=== PATIENT | male | born 1990 | race Caucasian/White ===

== ENCOUNTER 2018-10-01 22:48 | Emergency (ER) | payer OTHER, MEDICAID ==
[2018-10-01] MEDS: OXYMETAZOLINE NASAL SPRAY (AFRIN) (23:15)
== END 2018-10-01 23:34 | disposition home or self-care (01) ==
LOC: M ED 22:48
DX: H92.01 Otalgia, right ear (principal); J32.9 Chronic sinusitis, unspecified; F17.200 Nicotine dependence, unspecified, uncomplicated; I10 Essential (primary) hypertension; K21.9 Gastro-esophageal reflux disease without esophagitis; M54.9 Dorsalgia, unspecified; F32.9 Major depressive disorder, single episode, unspecified; F43.10 Post-traumatic stress disorder, unspecified; Z79.899 Other long term (current) drug therapy
CPT/HCPCS: 99282

== ENCOUNTER 2018-10-20 00:23 | Emergency (ER) | payer OTHER, SELFPAY ==
[~2018-10-20] VITALS: Ht 175.3 cm; Wt 94.1 kg
[~2018-10-20 00:23] MED LIST: ATEN50TA2 PO; AUGM875T28 PO; CYCL10TA PO; IBUP80TA PO; METH10TA PO; MOTR200T44 PO; NICO14DI3 TD; PANT40TA3 PO; PENI50TA PO; PERC5TAB12 PO; ROSU10TA5 PO; TYLE167L PO; TYLE325T5 PO
[2018-10-20 00:31] VITALS: BP 170/92
[2018-10-20] MEDS ORDERED: CLEO300C2 PO (01:45)
[2018-10-20] MEDS ORDERED: NORCO 5/325MG TABLET (BULK FOR ED) PO ONE (01:45)
[2018-10-20] MEDS ORDERED: CLINDAMYCIN 150 MG CAP PO ONE (01:45)
== END 2018-10-20 02:32 | disposition home or self-care (01) ==
LOC: M ED 00:23
DX: K08.89 Other specified disorders of teeth and supporting structures (principal); F17.210 Nicotine dependence, cigarettes, uncomplicated; Z79.899 Other long term (current) drug therapy

== ENCOUNTER 2018-12-12 00:10 | Emergency (ER) | payer OTHER ==
[~2018-12-12] VITALS: Ht 170.2 cm; Wt 87.7 kg
[2018-12-12 00:10] VITALS: BP 141/78
[~2018-12-12 00:10] MED LIST changes: +CLEO300C2 PO
[2018-12-12] MEDS ORDERED: ZITHTAB PO (02:14)
== END 2018-12-12 02:27 | disposition home or self-care (01) ==
LOC: M ED 00:10
DX: J01.90 Acute sinusitis, unspecified (principal); E03.9 Hypothyroidism, unspecified; F43.10 Post-traumatic stress disorder, unspecified; R51 Headache; F17.200 Nicotine dependence, unspecified, uncomplicated; Z79.899 Other long term (current) drug therapy

== ENCOUNTER 2019-03-26 16:47 | Emergency (ER) | payer OTHER ==
[~2019-03-26] VITALS: Ht 170.2 cm; Wt 88.8 kg
[~2019-03-26 16:47] MED LIST changes: +PENI500T PO; -PENI50TA PO; +ZITHTAB PO
[2019-03-26 16:48] VITALS: BP_SYST 77
== END 2019-03-26 18:41 | disposition left against medical advice (07) ==
LOC: M ED 16:47
DX: H57.89 Other specified disorders of eye and adnexa (principal); Z88.5 Allergy status to narcotic agent; Z79.899 Other long term (current) drug therapy

== ENCOUNTER 2019-05-20 02:08 | Emergency (ER) | payer OTHER ==
[~2019-05-20] VITALS: Ht 177.8 cm; Wt 90.9 kg
[2019-05-20] MEDS ORDERED: BUPIVACAINE LIPOSOME/PF 1.3% 20ML VIAL (13.3MG/ML)(EXPAREL)(C9290 PER1MG) INFIL ONE (02:30)
[2019-05-20 03:19] VITALS: BP 133/93
== END 2019-05-20 03:20 | disposition home or self-care (01) ==
LOC: M ED 02:08
DX: G89.29 Other chronic pain (principal); K08.89 Other specified disorders of teeth and supporting structures; K21.9 Gastro-esophageal reflux disease without esophagitis; F43.10 Post-traumatic stress disorder, unspecified; Z88.5 Allergy status to narcotic agent
CPT/HCPCS: 64400; 99283; C9290

== ENCOUNTER 2020-10-04 06:30 | Emergency (ER) | payer OTHER, SELFPAY ==
[~2020-10-04] VITALS: Ht 175.3 cm; Wt 85.0 kg
[~2020-10-04 06:30] MED LIST changes: +CYCL-707 PO; -CYCL10TA PO; +PANT40TA29 PO; -PANT40TA3 PO; -ROSU10TA5 PO; +ROSU10TA6 PO
[2020-10-04] MEDS ORDERED: SERO1TAB3 PO (06:49)
[2020-10-04] MEDS ORDERED: CYCL-707 PO (06:49)
[2020-10-04] MEDS ORDERED: GABA-282 PO (06:49)
[2020-10-04] MEDS ORDERED: ONDANSETRON 4MG/2ML VIAL IV ONE (07:15)
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
[2020-10-04] MEDS ORDERED: NS 1,000 ML IV ONE (07:45)
[2020-10-04 08:08] LABS: BASO % 0.3 % (0.0-1.0); EOS % 0.2 % (0.0-3.0); HEMATOCRIT 45.2 % (42.0-52.0); LYMPH % 7.1 % (24.0-44.0); MEAN CORPUSCULAR HEMOGLOBIN 28.4 pg (27.0-33.0); MEAN CORPUSCULAR HGB CONC 33.2 g/dl (32.0-36.5); MEAN CORPUSCULAR VOLUME 85.4 fl (80.0-96.0); MONO # 0.7 10^3/uL (0.0-0.8); NEUTROPHILS # 11.9 10^3/uL (1.5-8.5); NEUTROPHILS % 86.8 % (36.0-66.0); PLATELET COUNT, AUTOMATED 275 10^3/uL (150-450); RED BLOOD COUNT 5.29 10^6/uL (4.30-6.10); WHITE BLOOD COUNT 13.7 10^3/uL (4.0-10.0)
[2020-10-04 08:19] LABS: INR 1.02; PROTHROMBIN TIME 13.6 SECONDS (12.5-14.3)
[2020-10-04 08:20] LABS: PARTIAL THROMBOPLASTIN TIME 23.5 SECONDS (24.2-38.5)
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
[2020-10-04 08:30] LABS: BILIRUBIN,DIRECT 0.1 MG/DL (0.0-0.2); BILIRUBIN,TOTAL 0.7 MG/DL (0.2-1.0); TOTAL PROTEIN 7.2 GM/DL (6.4-8.2)
[2020-10-04] MEDS ORDERED: ACETAMINOPHEN 500 MG TAB PO ONE (09:30)
[2020-10-04] MEDS ORDERED: NEOSPORIN OINT 0.9 GM PKT TOP ONE (09:45)
[2020-10-04 09:48] VITALS: BP 142/72
== END 2020-10-04 09:50 | disposition home or self-care (01) ==
LOC: M ED 06:30
DX: S06.0X0A Concussion without loss of consciousness, initial encounter (principal); Y35.893A Legal intervention involving other specified means, suspect injured, initial encounter; Y92.9 Unspecified place or not applicable; Y93.9 Activity, unspecified; Y99.9 Unspecified external cause status; K21.9 Gastro-esophageal reflux disease without esophagitis; F43.10 Post-traumatic stress disorder, unspecified; Z88.6 Allergy status to analgesic agent
CPT/HCPCS: 70450; 72125; 72131; 73060; 73090; 73552; 73590; 80047; 80076; 85025; 85610; 85730; 86850; 86900; 86901; 93041; 94760; 96361; 96374; 99285; J2405

== ENCOUNTER 2021-02-27 03:37 | Emergency (ER) | payer SELFPAY ==
[~2021-02-27] VITALS: Ht 170.2 cm; Wt 78.0 kg
[~2021-02-27 03:37] MED LIST changes: +GABA-282 PO; +SERO1TAB3 PO
[2021-02-27] MEDS ORDERED: NS 1,000 ML IV ONE ×2 (03:55→04:45)
[2021-02-27 04:12] LABS: HEMATOCRIT 44.3 % (42.0-52.0); HEMOGLOBIN 14.4 g/dl (13.5-17.5); MEAN CORPUSCULAR HEMOGLOBIN 29.3 pg (27.0-33.0); MEAN CORPUSCULAR HGB CONC 32.5 g/dl (32.0-36.5); PLATELET COUNT, AUTOMATED 265 10^3/uL (150-450); RED BLOOD COUNT 4.92 10^6/uL (4.30-6.10); WHITE BLOOD COUNT 6.2 10^3/uL (4.0-10.0)
[2021-02-27 04:32] LABS: AMPHETAMINES LEVEL URINE POSITIVE (NEGATIVE); BARBITURATES URINE NEGATIVE (NEGATIVE); BENZODIAZEPINES URINE NEGATIVE (NEGATIVE); CANNABINOIDS URINE POSITIVE (NEGATIVE); COCAINE METABOLITE URINE NEGATIVE (NEGATIVE); METHADONE URINE NEGATIVE (NEGATIVE); OPIATES URINE NEGATIVE (NEGATIVE); PHENCYCLIDINE URINE NEGATIVE (NEGATIVE)
[2021-02-27 05:00] LABS: ACETAMINOPHEN LEVEL < 2.0 UG/ML (10.0-30.0); ALBUMIN 3.8 GM/DL (3.2-5.2); ALT/SGPT 25 U/L (12-78); BILIRUBIN,DIRECT < 0.1 MG/DL (0.0-0.2); BILIRUBIN,TOTAL 0.3 MG/DL (0.2-1.0); BLOOD UREA NITROGEN 9 MG/DL (7-18); CALCIUM LEVEL 8.6 MG/DL (8.5-10.1); CARBON DIOXIDE LEVEL 27 MEQ/L (21-32); CHLORIDE LEVEL 107 MEQ/L (98-107); CREATININE FOR GFR 1.14 MG/DL (0.70-1.30); ETHYL ALCOHOL (ETHANOL) < 0.003 % (0.000-0.010); GLOMERULAR FILTRATION RATE > 60.0 (>60); GLUCOSE, FASTING 93 MG/DL (70-100); POTASSIUM SERUM 3.4 MEQ/L (3.5-5.1); SALICYLATE LEVEL < 1.7 MG/DL (5.0-30.0); SODIUM LEVEL 143 MEQ/L (136-145); THYROID STIMULATING HORMONE 0.611 uIU/ML (0.358-3.740); TOTAL PROTEIN 7.1 GM/DL (6.4-8.2)
[2021-02-27] MEDS ORDERED: AMMONIA AROMATIC INHALANT STA (11:42)
[2021-02-27 13:00] VITALS: BP 146/75
== END 2021-02-27 13:31 | disposition home or self-care (01) ==
LOC: M ED 03:37
DX: F19.120 Other psychoactive substance abuse with intoxication, uncomplicated (principal); Z79.899 Other long term (current) drug therapy

== ENCOUNTER 2022-05-30 06:10 | Emergency (ER) | payer OTHER, SELFPAY ==
[~2022-05-30] VITALS: Ht 177.8 cm; Wt 78.2 kg
[2022-05-30] MEDS ORDERED: BACITRACIN OINTMENT 30GM TUBE TOP ONE (08:45)
[2022-05-30] MEDS ORDERED: BOOSTRIX/ADACEL VACCINE (DIPHTH/PERTUSS/ACELL/TETANUS) 0.5ML SYR IM.IMMUN ONE (08:45)
[2022-05-30] MEDS ORDERED: ONDANSETRON 4MG ORAL DISINTEGRATING TAB PO ONE (09:00)
[2022-05-30] MEDS ORDERED: oxyCODONE 5MG TAB PO ONE (09:00)
[2022-05-30] MEDS ORDERED: BACI500O8 TOP (10:59)
[2022-05-30] MEDS ORDERED: IBUP-1022 PO (10:59)
[2022-05-30 11:05] VITALS: BP 155/92
== END 2022-05-30 11:21 | disposition home or self-care (01) ==
LOC: M ED 06:10
DX: T23.262A Burn of second degree of back of left hand, initial encounter (principal); T23.261A Burn of second degree of back of right hand, initial encounter; X04.XXXA Exposure to ignition of highly flammable material, initial encounter; K21.9 Gastro-esophageal reflux disease without esophagitis; F43.10 Post-traumatic stress disorder, unspecified; F17.200 Nicotine dependence, unspecified, uncomplicated; M54.50 Low back pain, unspecified; Z88.6 Allergy status to analgesic agent; Y92.9 Unspecified place or not applicable; Y93.9 Activity, unspecified; Y99.9 Unspecified external cause status; T31.0 Burns involving less than 10% of body surface

== ENCOUNTER → 2023-04-26 | Outpatient (CLI) | payer OTHER ==
[~2023-04-26] MED LIST changes: +BACI500O8 TOP; +IBUP-1022 PO
[2023-04-26 15:40] LABS: BASO % 0.6 % (0.0-1.0); EOS # 0.1 10^3/uL (0.0-0.5); EOS % 1.8 % (0.0-3.0); HEMATOCRIT 44.2 % (42.0-52.0); HEMOGLOBIN 15.2 g/dl (13.5-17.5); LYMPH # 2.1 10^3/uL (1.5-5.0); LYMPH % 29.9 % (24.0-44.0); MEAN CORPUSCULAR HEMOGLOBIN 29.7 pg (27.0-33.0); MEAN CORPUSCULAR HGB CONC 34.4 g/dl (32.0-36.5); MEAN CORPUSCULAR VOLUME 86.5 fl (80.0-96.0); MONO # 0.5 10^3/uL (0.0-0.8); MONO % 6.3 % (2.0-8.0); NEUTROPHILS # 4.4 10^3/uL (1.5-8.5); NEUTROPHILS % 61.1 % (36.0-66.0); PLATELET COUNT, AUTOMATED 245 10^3/uL (150-450); RED BLOOD COUNT 5.11 10^6/uL (4.30-6.10); WHITE BLOOD COUNT 7.2 10^3/uL (4.0-10.0)
[2023-04-26 16:00] LABS: HEMOGLOBIN A1c 5.1 % (4.0-6.0)
[2023-04-26 16:19] LABS: ALBUMIN 4.1 G/DL (3.2-5.2); ALKALINE PHOSPHATASE 93 U/L (46-116); ALT/SGPT 33 U/L (7.0-40); AST/SGOT 23 U/L (<34); BILIRUBIN,DIRECT 0.3 MG/DL (<0.4); BILIRUBIN,TOTAL 1.1 MG/DL (0.3-1.2); BLOOD UREA NITROGEN 12 MG/DL (9-23); CALCIUM LEVEL 8.6 MG/DL (8.5-10.1); CARBON DIOXIDE LEVEL 24 MMOL/L (20-31); CHLORIDE LEVEL 109 MMOL/L (98-107); CHOLESTEROL LEVEL 228 MG/DL (<200); CHOLESTEROL RISK RATIO 6.11 (<5); CREATININE FOR GFR 0.79 MG/DL (0.70-1.30); GLOMERULAR FILTRATION RATE > 60.0 (>60); GLUCOSE, FASTING 91 MG/DL (60-100); HDL CHOLESTEROL 37.3 MG/DL (>40); LDL CHOLESTEROL 164.9 MG/DL (<100); NON-HDL-C 190.7 MG/DL; POTASSIUM SERUM 4.3 MMOL/L (3.5-5.1); SODIUM LEVEL 143 MMOL/L (136-145); TOTAL PROTEIN 6.9 G/DL (5.7-8.2); TRIGLYCERIDES LEVEL 129 MG/DL (<150)
[2023-04-26 16:21] LABS: TOTAL 25(OH) VITAMIN D 33.1 NG/ML (20.0-100.0)
[2023-04-26 16:22] LABS: THYROID STIMULATING HORMONE 2.453 uIU/ML (0.55-4.78)
[2023-04-26 16:46] LABS: HIV 1&2 SCREEN NEGATIVE (NEGATIVE)
[2023-04-26 16:58] LABS: HEPATITIS C VIRUS ABY INDEX > 11.0 INDEX (<0.8)
== END ==
LOC: M LAB 14:57
PROVIDERS: ATTEND Registered Nurse Psychiatric/Mental Health
DX: Z79.899 Other long term (current) drug therapy (principal)

== ENCOUNTER 2023-05-21 13:08 | Emergency (ER) | payer OTHER ==
[~2023-05-21] VITALS: Ht 170.2 cm; Wt 93.2 kg
[2023-05-21] MEDS ORDERED: DOXY-443 PO (14:13)
[2023-05-21] MEDS ORDERED: DOXYCYCLINE HYCLATE 100MG TABLET PO ONE (14:15)
[2023-05-21 15:03] VITALS: BP 143/77; TEMP 97.8; O2SAT 100
== END 2023-05-21 15:04 | disposition home or self-care (01) ==
LOC: M ED 13:08
DX: L66.4 Folliculitis ulerythematosa reticulata (principal); L03.90 Cellulitis, unspecified; F43.10 Post-traumatic stress disorder, unspecified; K21.9 Gastro-esophageal reflux disease without esophagitis; F17.200 Nicotine dependence, unspecified, uncomplicated; Z88.5 Allergy status to narcotic agent; Z79.899 Other long term (current) drug therapy

== ENCOUNTER 2024-09-27 13:56 | Emergency (ER) | payer OTHER ==
[~2024-09-27] VITALS: Ht 170.2 cm; Wt 104.5 kg
[~2024-09-27 13:56] MED LIST changes: +DOXY-441 PO; +GABA-1172 PO; -GABA-282 PO; -ROSU10TA6 PO; +ROSU10TA61 PO
[2024-09-27] MEDS ORDERED: ACET-683 PO (14:02)
[2024-09-27] MEDS ORDERED: IBUP200T46 PO (14:02)
[2024-09-27] MEDS: KETOROLAC 30 MG/ML 1ML VIAL IM ONE (15:03)
[2024-09-27] MEDS: CYCLOBENZAPRINE 5MG TABLET PO ONE (15:03)
[2024-09-27] MEDS: LIDOCAINE 5% (LIDODERM) PATCH TD ONE (15:04)
[2024-09-27] MEDS: NORCO, ANEXSIA 5/325MG TABLET (HYDROcodone/ACETAMINOPHEN) PO ONE (17:15)
[2024-09-27] MEDS ORDERED: [UNRECOGNIZED DRUG - CODE] PO (17:37)
[2024-09-27 17:43] VITALS: BP 135/81; TEMP 98.5; O2SAT 98
== END 2024-09-27 17:45 | disposition home or self-care (01) ==
LOC: M ED 13:56
DX: M54.50 Low back pain, unspecified (principal); X50.0XXA Overexertion from strenuous movement or load, initial encounter; R51.9 Headache, unspecified; K21.9 Gastro-esophageal reflux disease without esophagitis; F43.10 Post-traumatic stress disorder, unspecified; F32.A Depression, unspecified; F17.200 Nicotine dependence, unspecified, uncomplicated; F12.10 Cannabis abuse, uncomplicated; Z79.1 Long term (current) use of non-steroidal anti-inflammatories (NSAID); Z79.899 Other long term (current) drug therapy; Z88.5 Allergy status to narcotic agent
CPT/HCPCS: 96372; 99283; J1885

== ENCOUNTER → 2025-01-01 | Outpatient (REF) | payer OTHER ==
[~2025-01-01] MED LIST changes: +ACET-683 PO; +IBUP200T46 PO; +METH-1387 PO; -METH10TA PO; +[UNRECOGNIZED DRUG - CODE] PO
[2025-01-01 14:12] LABS: ALBUMIN 3.9 G/DL (3.2-5.2); ALKALINE PHOSPHATASE 90 U/L (40-129); ALT/SGPT 16 U/L (7.0-40); AST/SGOT 12 U/L (<34); BILIRUBIN,TOTAL 0.6 MG/DL (0.3-1.2); BLOOD UREA NITROGEN 15 MG/DL (9-23); CALCIUM LEVEL 9.4 MG/DL (8.5-10.1); CARBON DIOXIDE LEVEL 25 MMOL/L (20-31); CHLORIDE LEVEL 110 MMOL/L (98-107); CHOLESTEROL LEVEL 218 MG/DL (<200); CREATININE FOR GFR 0.89 MG/DL (0.70-1.30); GLOMERULAR FILTRATION RATE > 60.0 (>60); GLUCOSE, FASTING 100 MG/DL (60-100); HDL CHOLESTEROL 28.3 MG/DL (>40); LDL CHOLESTEROL 128.1 MG/DL (<100); NON-HDL-C 189.7 MG/DL; POTASSIUM SERUM 4.3 MMOL/L (3.5-5.1); SODIUM LEVEL 141 MMOL/L (136-145); TOTAL PROTEIN 6.7 G/DL (5.7-8.2); TRIGLYCERIDES LEVEL 308 MG/DL (<150)
[2025-01-01 14:38] LABS: HIV 1&2 SCREEN NEGATIVE (NEGATIVE)
[2025-01-01 15:00] LABS: Trichomonas vaginalis (AMP) NOT DETECTED (NEGATIVE)
[2025-01-01 15:05] LABS: HEPATITIS C VIRUS ABY INDEX > 11.00 INDEX (<0.8)
[2025-01-01 15:23] LABS: GC DNA AMPLIFICATION NEGATIVE (NEGATIVE)
== END ==
LOC: M LAB REF 12:42
PROVIDERS: ATTEND Physician Assistant
DX: Z11.9 Encounter for screening for infectious and parasitic diseases, unspecified (principal); E66.9 Obesity, unspecified; E55.9 Vitamin D deficiency, unspecified

== ENCOUNTER → 2025-02-13 | Outpatient (CLI) | payer OTHER | LOC: M RAD 10:25 | PROVIDERS: ATTEND Physician Assistant | DX: Z18.9 Retained foreign body fragments, unspecified material (principal) ==